=== PATIENT | male | born 1930 | race Caucasian/White ===

== ENCOUNTER 2016-09-11 17:03 | Emergency (ER) | payer MEDICARE, MEDICAID ==
[2016-09-11] MEDS ORDERED: Hydrocodone/APAP 10 mg/325 mg Tab PO STA (17:36)
--- NOTE | 2016-09-11 17:36 | ED Physician Chart ---
Chief Complaint/HPI - Patient Information Date Seen:: 09/11/16 Time Seen:: 17:26 Chief Complaint:: RIB INJURY History of Present Illness:: This 86-year-old male sustained an injury to the left side of his chest and he was transferring from one chair to another. He is uncertain of what part of the second chair struck him in the chest but he thinks it was the seat portion. He has no shortness of breath at this time and only chest pain when he takes deep breath or moves. The pain is well localized to the left anterior axillary line at approximately the level of the ninth rib. He rates the severity of pain when he moves as a 7/10. When he remains still and breathes shallow he is in no acute distress. Past medical history of uncertain which cardiac valve was repaired. Patient is uncertain if he has chronic atrial fibrillation. He does have a prior history of hypertension. He is able to walk for an hour every day without chest pain or shortness of breath. He denies cough, sputum production or hemoptysis. Allergies:: Allergies Allergy/AdvReac Type Severity Reaction Status Date / Time Penicillins Allergy Verified 09/11/16 17:17 Vitals:: Vital Signs - 8 hr 09/11/16 17:19 Temp 98.1 F HR 81 RR 18 BP 125/60 O2 Sat % 98 Review of Systems - Review of Systems General/Constitutional: No fever, No chills, No weakness, No diaphoresis, No edema, No loss of appetite Skin: No skin lesions, No rash, No bruising Head: No headache, No light-headedness Eyes: No loss of vision, No diplopia, Other (status post bilateral cataract repair) ENT: No earache, No sore throat, No tinnitus, Other (no injured or loose teeth.) Neck: No neck pain, No thyromegaly, No stiffness Cardio Vascular: Chest pain, No palpitations, No PND, No orthopnea, No edema Pulmonary: No SOB, No cough, No sputum, No wheezing GI: No nausea, No vomiting, No diarrhea, No pain, No hematemesis G/U: No dysuria, No frequency, No hematuria Musculoskeletal: No back pain, Other (left-sided rib pain.) Endocrine: No polyuria, No polydipsia Psychiatric: No prior psych history, No anxiety, No suicidal ideation Hematopoietic: No bruising, No lymphadenopathy Allergic/Immuno: No urticaria, No angioedema Neurological: No syncope, No focal symptoms, No weakness, No paresthesia, No headache, No seizure, No dizziness, No confusion, No vertigo Past Medical History - Past Medical History Past Medical History: HTN, Other (heart valve replacement) Family History: Heart disease Employment:: Light smoker and occasional alcohol. No illegal drug use. Bilateral cataract surgery. Cholecystectomy. Bilateral knee surgery. His with his family. Family Medical History - Family Member Mother History Unknown: Yes Ethnicity: Non- Living Status: Physical Exam - Physical Examination General/Constitutional: Well-developed, well-nourished, Alert, Non-toxic appearing, Ambulatory Other Gen/Cons comments:: Mild distress from his complained of pain. Head: Atraumatic Other Head comments:: No visible or palpable evidence of any head trauma. Eyes: Lids, conjuctiva normal, PERRL, EOMI Skin: Nl inspection, No rash, No skin lesions, No ecchymosis, Well hydrated, No lymphadenopathy ENMT: External ears, nose nl, Nasal exam nl, Lips, teeth, gums nl, Oropharynx nl , Tonsils nl Other ENMT comments:: The patient's teeth are in very good repair for his age. No evidence of any dental trauma at this time. Neck: Nontender, Full ROM w/o pain, No JVD, No nuchal rigidity, No bruit, No mass, No stridor Respiratory: Nl effort/Exclusion, No Wheeze/Rhonchi/Rales Other Respiratory comments:: There is tenderness on palpation of the left anterior chest in the anterior axillary line about 3 inches below the nipple level. Breath sounds are equal bilaterally. Other Cardio Vascular comments:: Heart rate is irregularly irregular. No prosthetic valve clicks. No murmurs. No S3 or S4 gallops. Patient has good pulses in all 4 extremities. GI: No tenderness/rebounding/guarding, No organomegaly, No hernia, Normal BS's, Nondistended, No mass/bruits, No McBurney tenderness Other GI comments:: Rectal examination deferred at my discretion. : No CVA tenderness Extremities: No tenderness or effusion, Full ROM, normal strength in all extremities, No edema Neuro/Psych: Alert/oriented, DTR's symmetric, Normal sensory exam, Normal motor strength Labs/Radiology/EKG Results - Lab Results Results: Single PA view of a chest x-ray. Borderline cardiomegaly, atherosclerosis in the aortic arch, no pneumothorax, no areas of pulmonary consolidation or infiltrate, mild atelectatic changes in the right base. Impression: No acute cardiopulmonary findings. Three-view left rib series: No displaced fractures recognized. No pneumothorax. Possible fracture of the left sixth rib. Impression: Nondisplaced left 6 rib fracture versus contusion EKG: Atrial fibrillation with a ventricular rate of 103. Borderline left axis deviation. Normal QRS duration. Normal QT interval. No ST segment elevation or depression. T waves appear normal. Impression: Abnormal EKG with atrial fibrillation and borderline incomplete right bundle branch block. Impression: No acute ischemic findings. Assessment - Assessment General Assessment: CASE SUMMARY: this 86-year-old male was brought to the emergency department by his family after he sustained an injury to his left chest when transferring from one chair to another. The patient denied any head injury or loss of consciousness. He rates the pain as a 7/10 severity when he moves or takes a deep breath. On physical examination there was tenderness in the anterior axillary line just below the level of the nipple. There was no crepitus palpated in the patient had normal breath sounds bilaterally. X-rays were taken of the chest and there was no evidence of a pneumothorax or mediastinal whitening. A rib series on the left side was obtained and no displaced fractures were present. Patients pain was treated with a single [place] 10/325 mg with complete relief of pain. He was discharged with a prescription for 10 additional ones to be used at nighttime. He was given the usual precautions regarding alcohol, driving in activities requiring alertness. Patient was discharged in stable condition. Indications for return to the emergency department were discussed with the patient and his family at the time of discharge. MDM DDX OF CHEST WALL INJURY: NO Pneumothorax based on chest x-ray. NO Pulmonary contusion based on chest x-ray. NO Hemothorax based on negative chest x-ray. ED Septic Shock - . Is Septic Shock (SBP<90, OR Lactate>4 mmol\L) present?: No - <6hrs of presentation: Vital Signs: Vital Signs - 8 hr 09/11/16 17:19 Temp 98.1 F HR 81 RR 18 BP 125/60 O2 Sat % 98 Reassessment (Disposition) - Reassessment Reassessment Condition:: Improved - Diagnosis Diagnosis:: CHEST CONTUSION VS NON-DISPLACED RIB FRACTURE. ED Discharge Plan - Patient Disposition Admit/Discharge/Transfer: PT DISCHARGED HOME Condition at Disposition: Improved Instructions: Rib Fracture, [id number]
[2016-09-11] MEDS ORDERED: Hydrocodone/APAP 10 mg/325 mg Tab ONE (17:42)
--- NOTE | 2016-09-12 10:58 | Diagnostic Imaging Report ---
Portable chest x-ray HISTORY: Pain, trauma No acute pulmonary processes. The heart is enlarged. Atherosclerotic calcification seen in the aorta. Surgical suture material noted over the mid chest. IMPRESSION: 1. No definite acute abnormalities 2. Cardiomegaly with atherosclerotic vascular changes 3. Surgical changes
--- NOTE | 2016-09-12 10:59 | Diagnostic Imaging Report ---
Left RIBS (4 views) HISTORY: Pain, trauma Exam is suboptimal. There is slight deformity involving the lateral aspect the left ninth rib. A subtle fracture cannot be excluded. No acute pulmonary parenchymal or pleural abnormalities. IMPRESSION: 1. Questionable deformity involving the lateral aspect of the left ninth rib. A subtle fracture cannot be related. Clinical correlation needed.
== END 2016-09-11 18:27 | disposition home or self-care (01) ==
LOC: ER 17:03
DX: S29.9XXA Unspecified injury of thorax, initial encounter (principal); I10 Essential (primary) hypertension; Z88.0 Allergy status to penicillin; X58.XXXA Exposure to other specified factors, initial encounter; Y93.89 Activity, other specified; Y92.89 Other specified places as the place of occurrence of the external cause; Y99.8 Other external cause status
CPT/HCPCS: 71010-TC; 71101-TC-LT; 93005; Z7502